=== PATIENT | female | born 1970 | race Caucasian/White ===

== ENCOUNTER 2020-01-11 18:28 | Emergency (ER) | payer BC ==
[2020-01-11 19:09] LABS: #Basophils 0.1 thou/uL (0.0-0.2); #Eosinphils 0.1 thou/uL (0.0-0.7); #Lymphocytes 2.3 thou/uL (1.20-3.40); #Monocytes 0.6 thou/uL (0.11-0.59); %Basophils 0.7 % (0.0-1.0); %Eosinophils 1.1 % (0.0-10.0); %Lymphocytes 28.7 % (21.0-51.0); %Neutrophils 62.4 % (42.0-75.0); Hemoglobin 13.9 g/dL (12.0-16.0); Mean Corpuscular HGB CONC 32.4 g/dL (32.0-36.0); Mean Corpuscular Hemoglobin 28.5 pg (27.0-31.0); Mean Corpuscular Volume 87.8 fL (78.0-98.0); Mean Platelet Volume 7.7 fL (7.4-10.4); Platelet Count 280 thou/uL (130-400); RBC Distribution Width 12.3 % (11.5-14.5); Red Blood Cell (RBC) Count 4.87 mill/uL (4.20-5.40)
--- NOTE | 2020-01-11 19:10 | RAD ---
PORTABLE CHEST: Date: 01-11-2020 PROVIDED CLINICAL HISTORY: Chest pain FINDINGS: Comparison with 03-09-2019. Remote left sided rib fractures are redemonstrated. Cardiac and mediastina l silhouette is within normal limits for portable technique. No focal consolidation, pleural fluid or pneumothorax apparent. IMPRESSION: No evidence for an acute cardiopulmonary process. POS: [facility]
[2020-01-11 19:15] LABS: INR-International Normal Ratio 0.9; PTT 36.6 sec (22.9-36.1); Prothrombin Time 12.6 sec (12.0-14.7)
[2020-01-11 19:16] LABS: D-Dimer Test 0.4 *mcg/mL (0.27-0.43)
[2020-01-11 19:25] LABS: ALT (SGPT) 37 U/L (8-55); AST (SGOT) 23 U/L (5-34); Albumin 4.4 g/dL (3.5-5.0); Alkaline Phosphatase 106 U/L (40-110); Anion Gap 18 mmol/L (10-20); BUN (Urea Nitrogen) 17 mg/dL (9.8-20.1); Bilirubin, Total 0.3 mg/dL (0.2-1.2); CK (CPK) 139 U/L (29-168); Calc. Creatinine Clearance 0 mL/min (70-130); Calcium 9.7 mg/dL (7.8-10.44); Carbon Dioxide 25 mmol/L (22-29); Chloride 105 mmol/L (98-107); Globulin 2.8 g/dL (2.4-3.5); Glucose 98 mg/dL (70-105); Potassium 3.5 mmol/L (3.5-5.1); Protein, Total 7.2 g/dL (6.0-8.3); Sodium 144 mmol/L (136-145)
[2020-01-11] MEDS ORDERED: Nitroglycerin 0.4 MG TAB 1 EACH ONE ×2 (19:25→19:27)
[2020-01-11 19:27] LABS: CKMB 2.1 ng/mL (0-6.6)
[2020-01-11] MEDS ORDERED: Nitroglycerin 2% Ointment 1 INCH/1 GM Packet ONE (20:50)
[2020-01-11] MEDS ORDERED: Metoprolol Tartrate 50 MG TAB ONE (20:50)
== END 2020-01-11 21:48 | disposition short-term general hospital (02) ==
LOC: MADERS 18:28
DX: I20.0 Unstable angina (principal); I10 Essential (primary) hypertension; G43.909 Migraine, unspecified, not intractable, without status migrainosus; Z86.79 Personal history of other diseases of the circulatory system
CPT/HCPCS: 71045; 80053; 82550; 82553; 83880; 84484; 85025; 85379; 85610; 85730; 93005; 94760

== ENCOUNTER 2020-06-19 17:00 | Emergency (ER) | payer OTHER, BC ==
[2020-06-19] MEDS ORDERED: Boostrix 0.5 ML (Tdap) VIAL ONE (17:50)
[2020-06-19] MEDS ORDERED: Sodium Chloride Irrig Solution 250 ML ONE (17:56)
== END 2020-06-19 18:15 | disposition home or self-care (01) ==
LOC: MADERS 17:00
DX: S61.451A Open bite of right hand, initial encounter (principal); I10 Essential (primary) hypertension; G43.909 Migraine, unspecified, not intractable, without status migrainosus; I25.2 Old myocardial infarction; Z79.899 Other long term (current) drug therapy; W54.0XXA Bitten by dog, initial encounter
CPT/HCPCS: 90471; 90715

== ENCOUNTER 2020-06-25 16:13 | Emergency (ER) | payer BC ==
[2020-06-25] MEDS ORDERED: Fluorescein Opthalmic Strip ONE (16:25)
[2020-06-25] MEDS ORDERED: Tetracaine 0.5% PF 4 ML BOT ONE (16:25)
== END 2020-06-25 17:08 | disposition home or self-care (01) ==
LOC: MADERS 16:13
DX: T15.82XA Foreign body in other and multiple parts of external eye, left eye, initial encounter (principal); I10 Essential (primary) hypertension; I25.2 Old myocardial infarction; G43.909 Migraine, unspecified, not intractable, without status migrainosus; Z79.82 Long term (current) use of aspirin; Z79.899 Other long term (current) drug therapy
CPT/HCPCS: 99282

== ENCOUNTER 2020-12-18 18:08 | Emergency (ER) | payer BC ==
[2020-12-18] MEDS ORDERED: Ketorolac Tromethamine 60 MG/2 ML VIAL ONE (18:38)
[2020-12-18] MEDS ORDERED: Prochlorperazine 10 MG/2 ML VIAL ONE (18:38)
[2020-12-18] MEDS ORDERED: diphenhydrAMINE 25 MG CAP ONE (18:38)
[2020-12-19 20:16] LABS: SARS-CoV-2 PCR by NAA Not Detected (NotDetected)
== END 2020-12-18 19:30 | disposition home or self-care (01) ==
LOC: MADERS 18:08
DX: B34.9 Viral infection, unspecified (principal); G43.909 Migraine, unspecified, not intractable, without status migrainosus; E78.5 Hyperlipidemia, unspecified; I10 Essential (primary) hypertension; Z20.822 Contact with and (suspected) exposure to COVID-19
CPT/HCPCS: 87804; 96372; 99283; J0780; J1885; U0003; U0005

== ENCOUNTER 2022-08-20 10:11 | Emergency (ER) | payer BC ==
[~2022-08-20 10:11] MED LIST: Sodium Chloride 0.9% 1,000 ML BAG ONE
[2022-08-20] MEDS ORDERED: diphenhydrAMINE 12.5 MG/5 ML UDCUP ONE (10:51)
[2022-08-20] MEDS ORDERED: diphenhydrAMINE 50 MG/ML VIAL ONE (10:53)
[2022-08-20] MEDS ORDERED: Metoclopramide HCl 10 MG/2 ML VIAL ONE (10:54)
[2022-08-20 11:30] LABS: #Basophils 0.1 thou/uL (0.0-0.2); #Eosinphils 0.1 thou/uL (0.0-0.7); #Lymphocytes 1.7 thou/uL (1.20-3.40); #Monocytes 0.7 thou/uL (0.11-0.59); #Neutrophils 4.3 thou/uL (1.40-6.50); %Basophils 1.1 % (0.0-1.0); %Eosinophils 1.7 % (0.0-10.0); %Lymphocytes 24.9 % (21.0-51.0); %Monocytes 9.9 % (0.0-10.0); %Neutrophils 62.5 % (42.0-75.0); Hemoglobin 13.4 g/dL (12.0-16.0); Mean Corpuscular HGB CONC 32.2 g/dL (32.0-36.0); Mean Corpuscular Hemoglobin 29.8 pg (27.0-31.0); Mean Corpuscular Volume 92.5 fl (78.0-98.0); Mean Platelet Volume 8.4 fL (7.4-10.4); Platelet Count 205 10x3/uL (130-400); RBC Distribution Width 14.2 % (11.5-14.5); Red Blood Cell (RBC) Count 4.48 mill/uL (4.20-5.40); White Blood Cell (WBC) Count 6.8 10x3/uL (4.8-10.8)
[2022-08-20 11:44] LABS: ALT (SGPT) 50 U/L (8-55); AST (SGOT) 29 U/L (5-34); Albumin 4.3 g/dL (3.5-5.0); Alkaline Phosphatase 91 U/L (40-110); Anion Gap 13 mmol/L (10-20); BUN (Urea Nitrogen) 18 mg/dL (9.8-20.1); Bilirubin, Total 0.8 mg/dL (0.2-1.2); Calc. Creatinine Clearance 0 mL/min (70-130); Calcium 9.7 mg/dL (7.8-10.44); Carbon Dioxide 26 mmol/L (22-29); Chloride 104 mmol/L (98-107); Estimated GFR 67; Globulin 2.5 g/dL (2.4-3.5); Glucose 87 mg/dL (70-105); Potassium 4.2 mmol/L (3.5-5.1); Protein, Total 6.8 g/dL (6.0-8.3); Sodium 139 mmol/L (136-145)
[2022-08-20] MEDS ORDERED: Meclizine HCl 25 MG TAB ONE (11:57)
== END 2022-08-20 12:25 | disposition home or self-care (01) ==
LOC: MADERS 10:11
DX: R42 Dizziness and giddiness (principal); E78.5 Hyperlipidemia, unspecified; I10 Essential (primary) hypertension
CPT/HCPCS: 80053; 85025; 94760; 96374; 96375; J1200; J2765; J7050; Q0163

== ENCOUNTER 2023-08-30 08:14 | Outpatient (CLI) | payer BC | END 2023-08-30 08:15 | disposition home or self-care (01) | LOC: MADLAB 08:14 | PROVIDERS: ATTEND Nurse Practitioner Family | DX: M54.50 Low back pain, unspecified (principal); M25.552 Pain in left hip; M25.551 Pain in right hip; I25.10 Atherosclerotic heart disease of native coronary artery without angina pectoris; M47.816 Spondylosis without myelopathy or radiculopathy, lumbar region; M16.12 Unilateral primary osteoarthritis, left hip | CPT/HCPCS: 36415; 72100; 80061 ==

== ENCOUNTER 2024-10-06 08:35 | Outpatient (CLI) | payer BC ==
[2024-10-06 08:47] LABS: #Basophils 0.0 thou/uL (0.0-0.2); #Eosinophils 0.1 thou/uL (0.0-0.7); #Lymphocytes 1.3 thou/uL (1.20-3.40); #Monocytes 0.5 thou/uL (0.11-0.59); #Neutrophils 4.0 thou/uL (1.40-6.50); %Basophils 0.5 % (0.0-1.0); %Eosinophils 1.5 % (0.0-10.0); %Lymphocytes 21.7 % (21.0-51.0); %Monocytes 8.7 % (0.0-10.0); %Neutrophils 67.5 % (42.0-75.0); Hematocrit 35.8 % (36.0-47.0); Hemoglobin 11.9 g/dL (12.0-16.0); Mean Corpuscular Hemoglobin 29.3 pg (27.0-31.0); Mean Corpuscular Volume 88.0 fl (78.0-98.0); Platelet Count 196 10x3/uL (130-400); Red Blood Cell (RBC) Count 4.07 mill/uL (4.20-5.40); White Blood Cell (WBC) Count 6.0 10x3/uL (4.8-10.8)
[2024-10-06 09:02] LABS: ALT (SGPT) 31 U/L (Less than 34); AST (SGOT) 28 U/L (11-34); Albumin 3.6 g/dL (3.1-4.5); Alkaline Phosphatase 79 U/L (40-110); Anion Gap 14 mmol/L (10-20); BUN (Urea Nitrogen) 14 mg/dL (9.8-20.1); Bilirubin, Total 0.5 mg/dL (0.3-1.2); Calc. Creatinine Clearance 0 mL/min (70-130); Calcium 8.7 mg/dL (7.8-10.44); Carbon Dioxide 23 mmol/L (22-29); Chloride 112 mmol/L (98-107); Globulin 2.2 g/dL (2.4-3.5); Glucose 118 mg/dL (70-105); Potassium 3.6 mmol/L (3.5-5.1); Sodium 145 mmol/L (136-145)
== END 2024-10-06 08:36 | disposition home or self-care (01) ==
LOC: MADLAB 08:35
PROVIDERS: ATTEND Orthopaedic Surgery
DX: Z01.812 Encounter for preprocedural laboratory examination (principal); M93.1 Kienbock's disease of adults
CPT/HCPCS: 36415; 80053; 83036; 85025

== ENCOUNTER 2025-01-20 08:38 | Outpatient (CLI) | payer BC ==
[2025-01-20 09:05] LABS: ALT (SGPT) 39 U/L (Less than 34); AST (SGOT) 40 U/L (11-34); Albumin 4.2 g/dL (3.1-4.5); Alkaline Phosphatase 113 U/L (40-110); Anion Gap 13 mmol/L (10-20); BUN (Urea Nitrogen) 16 mg/dL (9.8-20.1); Bilirubin, Total 0.4 mg/dL (0.3-1.2); Calc. Creatinine Clearance 0 mL/min (70-130); Calcium 9.3 mg/dL (7.8-10.44); Carbon Dioxide 26 mmol/L (22-29); Cardiac Risk 2.9 (Less than 4.5); Chloride 109 mmol/L (98-107); Cholesterol 132 mg/dl (< 200 Desired); Globulin 2.4 g/dL (2.4-3.5); Glucose 94 mg/dL (70-105); HDL Cholesterol 45 mg/dL (>60 Neg Risk); LDL Cholesterol, Calculated 71 mg/dL; Potassium 4.4 mmol/L (3.5-5.1); Sodium 144 mmol/L (136-145); Triglycerides 78 mg/dL (Less than 150)
[2025-01-20 09:30] LABS: #Basophils 0.1 thou/uL (0.0-0.2); #Eosinophils 0.1 thou/uL (0.0-0.7); #Lymphocytes 1.3 thou/uL (1.20-3.40); #Monocytes 0.6 thou/uL (0.11-0.59); #Neutrophils 3.9 thou/uL (1.40-6.50); %Basophils 1.0 % (0.0-1.0); %Eosinophils 2.3 % (0.0-10.0); %Lymphocytes 21.9 % (21.0-51.0); %Monocytes 9.3 % (0.0-10.0); %Neutrophils 65.6 % (42.0-75.0); Hematocrit 41.7 % (36.0-47.0); Hemoglobin 13.4 g/dL (12.0-16.0); Mean Corpuscular Hemoglobin 28.8 pg (27.0-31.0); Mean Corpuscular Volume 90.0 fl (78.0-98.0); Platelet Count 206 10x3/uL (130-400); Red Blood Cell (RBC) Count 4.64 mill/uL (4.20-5.40); White Blood Cell (WBC) Count 6.0 10x3/uL (4.8-10.8)
== END 2025-01-20 08:39 | disposition home or self-care (01) ==
LOC: MADLAB 08:38
PROVIDERS: ATTEND Nurse Practitioner Family
DX: I25.10 Atherosclerotic heart disease of native coronary artery without angina pectoris (principal)
CPT/HCPCS: 36415; 80053; 80061; 85025